=== PATIENT | male | born 1960 | race Caucasian/White ===

== ENCOUNTER 2023-11-14 05:53 | Observation (INO) ==
--- NOTE | 2023-09-25 15:59 | PAT Medication Instructions ---
Medication Instructions Date of Service September 25, 2023 Home Medications ascorbic acid (vitamin C) 1,000 mg tablet (Vitamin C) 1 g PO QAM atenolol 100 mg-chlorthalidone 25 mg tablet 1 tab PO QAM chlorthalidone 25 mg tablet 25 mg PO QAM cholecalciferol (vitamin D3) 25 mcg (1,000 unit) chewable tablet (Vitamin D3) 25 mcg PO QAM gabapentin 300 mg tablet 300 mg PO BID simvastatin 20 mg tablet 20 mg PO HS Acid Reflux Medication 1 tab PO DAILY duloxetine 30 mg capsule,delayed release 30 mg PO QAM Continue as directed Acid Reflux Medication 1 tab PO DAILY--if TUMS cannot be taken day of surgery DO NOT take the morning of surgery ascorbic acid (vitamin C) 1,000 mg tablet (Vitamin C) 1 g PO QAM chlorthalidone 25 mg tablet 25 mg PO QAM cholecalciferol (vitamin D3) 25 mcg (1,000 unit) chewable tablet (Vitamin D3) 25 mcg PO QAM Take morning of surgery With a small sip of water, OTHERWISE NOTHING TO EAT OR DRINK AFTER MIDNIGHT: atenolol 100 mg-chlorthalidone 25 mg tablet 1 tab PO QAM gabapentin 300 mg tablet 300 mg PO BID duloxetine 30 mg capsule,delayed release 30 mg PO QAM Take evening before surgery gabapentin 300 mg tablet 300 mg PO BID simvastatin 20 mg tablet 20 mg PO HS Other Notes If you have any questions please call us at [phone] or [phone] or [phone] or [phone]
--- NOTE | 2023-10-07 09:41 | Anesthesiology Consultation ---
Date of Service October 07, 2023 Assessment & Plan (1) Encounter for pre-operative examination: - Infectious disease screening: Per assessment on 10/07/23: No known recent infectious disease contacts. Patient reports recent Lyme disease diagnosis 09/2023- almost done with treatment course. Fatigue/dizziness related to this improving per patient at PAT visit 10/07/23. - Cardiology visit (05/01/23): "Patient presents for evaluation of aortic valve disease.. Doppler findings suggest mild to moderate stenosis.. It may be a bicuspid valve, but cannot know this for sure on the basis of his echocardiogram. The echo was otherwise normal.. He reports occasional lightheadedness, but this is not likely from the valve.. I will repeat an echocardiogram in one year and see him back after" - Heavy ETOH use: 4 beers/day (evening)- no morning ETOH use per patient - Patient acceptable risk for surgery pending surgeon-ordered PCP preop evaluation (Dr. Lundy/[place], appt date TBD per PCP office). Chart Review Chart Review: Patient seen in Pre Admission Testing Teaching & Discussion Pre-Anesthesia Teaching/Discussion Notes: Instructed NPO after midnight before surgery,except medications with 15 cc of water. Medication instructions provided according to the [facility] guidelines. History Surgery Operation Date: 11/14/23 07:45 Proposed Procedures p C4-C7 Anterior Discectomy and Fusion, Spinal Cord Monitoring - Yung Charlton DO Height/Weight Height: 5 ft 9 in Weight: 105.8 kg Allergies Allergy/AdvReac Type Severity Reaction Status Date / Time No Known Allergies Allergy Intermediate NONE Verified 09/25/23 15:16 Medications Home Medications Medication Instructions Recorded Confirmed Last Taken ascorbic acid (vitamin C) 1,000 mg 1 g PO QAM 06/12/23 09/25/23 06/17/23 05:00 tablet (Vitamin C) atenolol 100 mg-chlorthalidone 25 1 tab PO QAM 06/12/23 09/25/23 06/17/23 05:00 mg tablet chlorthalidone 25 mg tablet 25 mg PO QAM 06/12/23 09/25/23 06/17/23 05:00 cholecalciferol (vitamin D3) 25 25 mcg PO QAM 06/12/23 09/25/23 06/17/23 05:00 mcg (1,000 unit) chewable tablet (Vitamin D3) gabapentin 300 mg tablet 300 mg PO BID 06/12/23 09/25/23 06/17/23 00:00 simvastatin 20 mg tablet 20 mg PO HS 06/12/23 09/25/23 06/17/23 05:00 Acid Reflux Medication 1 tab PO DAILY 09/25/23 09/25/23 Unknown duloxetine 30 mg capsule,delayed 30 mg PO QAM 09/25/23 09/25/23 Unknown release Past Medical History Medical History Aortic stenosis Echo 03/2023: Mild to moderate aortic stenosis (TUCKER 1.2cm2, MG 16mmhg) Cervical pain (neck) + neuropathy Follows with Neuro Dr. Moore/PH Hal Claustrophobia Hx of colonic polyps Hyperlipidemia Hypertension Lyme disease Dx 09/2023, almost done with abx treatment- symptoms improving per PAT visit 10/07/23 Peripheral neuropathy Exercise / Class Metabolic Activity II 4-5 Yardwork/Stairs/Walk up hill Past Surgical History Surgical History History of left knee replacement (~2008) Hx of colonoscopy with polypectomy Hx of knee surgery x3, R/L cartilage repair Hx of repair of left rotator cuff Past Anesthesia History No Hx of Anesthesia Complications and No Family Hx of Anesthesia Complications History of PONV No Hx of PONV and No Hx of Motion Sickness Social History Smoking Status: Never smoker Do You Dip or Chew Tobacco: Yes (Daily- advised none DOS) Hx Alcohol Use: Yes Alcohol type: beer alcohol intake frequency: 3 or more drinks per day (4 beers/day (evening)- no morning ETOH use) Hx Substance Use: No substance use type: does not use Review of Systems Patient denies chest pain, shortness of breath, dyspnea on exertion, fever, chills, cough, wheezing, palpitations. Physical Exam Vital Signs BP 102/70 P 71 TEMP 98.0 SP02 95% RESP 16 Physical Mildly decreased cervical extension range of motion. Full TMJ range of motion. TMD 3 finger breaths Mallampati Score I Dentition: intact, upper front caps Lungs: clear throughout to auscultation Cardiac: regular rate and rhythm, no murmurs noted Spine: normal Carotid arteries: negative bruit Extremities: no LE edema Lab Results Anesthesia Preop Results Results Anesthesia Widget: WBC 8.60 K/ul (4.8-10.8) 10/07/23 Hgb 16.4 g/dl (14.0-18.0) 10/07/23 Hct 46.6 % (42.0-52.0) 10/07/23 Plt 384 K/uL (130-400) 10/07/23 Na 139 mmol/L (136-145) 10/07/23 K 4.1 mmol/L (3.5-5.1) 10/07/23 Cl 102 mmol/L (98-107) 10/07/23 CO2 30 mmol/L (21-32) 10/07/23 BUN 25 mg/dl (6-23) H 10/07/23 Creat 0.97 mg/dl (0.6-1.4) 10/07/23 Glucose Level 85 mg/dl (70-99(Fasting)) 10/07/23 PT 10.9 Seconds (9.0-12.0) 10/07/23 PTT 27 Seconds (21-31) 10/07/23 INR 1.0 (0.9-1.1) 10/07/23 Urine Color Yellow 10/07/23 Urine Appearance Clear (Clear) 10/07/23 Urine pH 5.5 (4.5-7.5) 10/07/23 Urine Specific [place] 1.026 (1.000-1.030) 10/07/23 Urine Protein Trace (Negative) H 10/07/23 Urine Glucose (UA) Negative (Negative) 10/07/23 Urine Ketones Trace (Negative) H 10/07/23 Urine Blood Negative (Negative) 10/07/23 Urine Nitrite Negative (Negative) 10/07/23 Urine Bilirubin Negative (Negative) 10/07/23 Urine Urobilinogen Negative (Negative) 10/07/23 Urine Leukocyte Esterase 1+ (Negative) H 10/07/23 Urine WBC (Auto) 6-10 /hpf (0-5) H 10/07/23 Urine RBC (Auto) 3-5 /hpf (0-2) H 10/07/23 Urine Hyaline Casts (Auto) 11-20 /lpf (0-2) H 10/07/23 Urine Epithelial Cells (Auto) 0-2 /hpf (0-2) 10/07/23 Urine Bacteria (Auto) None Seen (None Seen) 10/07/23 Blood Type O Negative 10/07/23 Antibody Screen NEGATIVE 10/07/23 Testing Laboratory Results 09/24/23 HGBA1C 5.9% TSH 1.180 Electrocardiogram Date: 05/01/23 SB at 57bpm. First degree AVB. RBBB. Chest X-Ray Date: 10/07/23 FINDINGS: PA and lateral chest radiographs are compared to study dated 09/27/2008. The heart is enlarged noting atherosclerotic calcification of the thoracic aorta. The pulmonary vasculature is not congested. There is mild bibasilar scarring/atelectasis. The lungs and pleural spaces are otherwise clear. There is no pneumothorax. The skeletal structures are osteopenic. There are chronic/healed left-sided rib fractures. IMPRESSION: Cardiomegaly with no active disease in the chest. Echocardiogram Date: 03/06/23 LVEF 60-65%. Wall motion is normal. Mild to moderate aortic stenosis (TUCKER 1.2cm2, MG 16mmhg).
[2023-11-14] MEDS: LR 60ML/HR IV SCH (06:32)
[2023-11-14] MEDS: LR 15ML/HR IV SCH (06:32)
[2023-11-14] MEDS: GABAPENTIN 600 MG DOSE PO SCH (06:35)
[2023-11-14] MEDS: CeleBREX 200 MG CAP PO SCH (06:35)
[2023-11-14] MEDS ORDERED: MIDAZOLAM HCL 1 MG/ML 2ML VIAL ONE (06:52)
[2023-11-14] MEDS ORDERED: fentaNYL citrate PF 100 MCG/2 ML VIAL ONE (06:53)
[2023-11-14] MEDS ORDERED: LIDOCAINE 2% 2 ML VIAL/AMP(20MG/ML) INFIL ONE (07:06)
[2023-11-14] MEDS ORDERED: DEXAMETHASONE SOD INJ 4 MG/ML VIAL ONE (07:06)
[2023-11-14] MEDS ORDERED: ROCURONIUM BROMIDE 10 MG/ML 5 ML VIAL IV ONE ×3 (07:06→09:02)
[2023-11-14] MEDS ORDERED: PROPOFOL IV EMULSION 10 MG/ML 20 ML VIAL IV ONE (07:06)
[2023-11-14] MEDS ORDERED: ONDANSETRON INJ 2 MG/ML 2 ML VIAL ONE (07:06)
[2023-11-14] MEDS ORDERED: ATROPINE SULFATE 0.1 MG/ML 10ML SYR IV PRN (07:28)
[2023-11-14] MEDS ORDERED: HYDROmorphone INJ 2 MG/ML SYR/VIAL IV PRN (07:28)
[2023-11-14] MEDS ORDERED: fentaNYL citrate PF 100 MCG/2 ML VIAL IV PRN (07:28)
[2023-11-14] MEDS ORDERED: ePHEDrine sulfate 50 MG/ML AMP IV PRN (07:28)
--- NOTE | 2023-11-14 07:42 | History & Physical Bridge Note ---
Date of Service November 14, 2023 History & Physical Bridge Note I have examined the patient, reviewed the History & Physical and in the interval since the performance of the History & Physical I have noted the following changes of clinical significance: no changes noted
--- NOTE | 2023-11-14 07:43 | History & Physical Report ---
Date of Service November 14, 2023 Assessment & Plan (1) Cervical stenosis of spinal canal: Plan: C4-C7 anterior cervical discectomy and fusion History of Present Illness Chief Complaint: Neck and arm pain Primary Care Provider: Yaniv Lundy This is a 63-year-old male presents with chronic persistent neck and arm pain after failing course of nonoperative care is here for surgical invention. Allergies Allergy/AdvReac Type Severity Reaction Status Date / Time No Known Allergies Allergy Intermediate NONE Verified 11/14/23 06:11 Home Medications Medication Instructions Recorded Confirmed Type ascorbic acid (vitamin C) 1,000 mg 1 g PO QAM 06/12/23 11/14/23 History tablet (Vitamin C) atenolol 100 mg-chlorthalidone 25 1 tab PO QAM 06/12/23 11/14/23 History mg tablet chlorthalidone 25 mg tablet 25 mg PO QAM 06/12/23 11/14/23 History cholecalciferol (vitamin D3) 25 25 mcg PO QAM 06/12/23 11/14/23 History mcg (1,000 unit) chewable tablet (Vitamin D3) gabapentin 300 mg tablet 300 mg PO BID 06/12/23 11/14/23 History simvastatin 20 mg tablet 20 mg PO HS 06/12/23 11/14/23 History duloxetine 30 mg capsule,delayed 30 mg PO QAM 09/25/23 11/14/23 History release Past Med/Surg History Problem List (Updated 11/14/23 @ 07:43 by Yung Charlton DO) Cervical stenosis of spinal canal Medical History Aortic stenosis Echo 03/2023: Mild to moderate aortic stenosis (TUCKER 1.2cm2, MG 16mmhg) Cervical pain (neck) + neuropathy Follows with Neuro Dr. Moore/PH Hal Claustrophobia Hx of colonic polyps Hyperlipidemia Hypertension Lyme disease Dx 09/2023, almost done with abx treatment- symptoms improving per PAT visit 10/07/23 Peripheral neuropathy Surgical History History of left knee replacement (~2008) Hx of colonoscopy with polypectomy Hx of knee surgery x3, R/L cartilage repair Hx of repair of left rotator cuff Social History Smoking Status: Never smoker Tobacco Type: Smokeless Tobacco (Dip or Chew) Second Hand Exposure: Yes (hx in the workplace); Do You Dip or Chew Tobacco: Yes (Daily- advised none DOS); Tobacco Cessation Education Requested by Patient: No Hx Alcohol Use: Yes Alcohol type: beer Hx Substance Use: No Preferred Language: Lithuanian Communication Ability: Effective Clinical Outcomes Manager Required: No Beliefs That Will Affect Care: None Current Living Situation: Spouse Other Information That Helps Us Care for You: No Feels Safe at Home: Yes Safety Concerns: Feels Safe At This Time Assistive Devices: Glasses Physical Exam Physical Exam: Patient is alert and oriented Heart regular rhythm Lungs clear Results & Data Results & Data Vital Signs (Past 12 Hours) Vital Signs Temp Pulse Resp BP Pulse Ox O2 Del Method 11/14/23 06:14 36.9 C 55 L 18 136/80 96 Room Air
[2023-11-14] MEDS: ceFAZolin 2000MG 2,000 MG/15 ML SYR IV SCH ×2 (07:49→16:41)
[2023-11-14] MEDS ORDERED: GLYCOPYRROLATE 0.2 MG/ML VIAL ONE (08:15)
[2023-11-14] MEDS ORDERED: diphenhydrAMINE 50 MG/ML VIAL ONE (08:15)
[2023-11-14] MEDS ORDERED: KETAMINE HCL 10MG/ML SYR ONE (08:33)
[2023-11-14] MEDS ORDERED: ePHEDrine sulfate 50 MG/ML AMP ONE (09:06)
[2023-11-14] MEDS: FLOSEAL HEMOSTATIC MATRIX 10ML TOP ONE (09:42)
[2023-11-14] MEDS: ceFAZolin 330 MG/ML 1 GM VIAL ONE (09:42)
[2023-11-14] MEDS ORDERED: SUGAMMADEX SODIUM 200 MG/2 ML VIAL IV ONE (09:48)
--- NOTE | 2023-11-14 09:57 | Operative Report ---
Post Operative Report Pre & Post Diagnosis Operation Date: 11/14/23 07:40 Pre-Op Diagnosis: Cervical spinal stenosis with radiculopathy Post-Op Diagnosis: Same I identified the patient and participated in the time-out.: Yes Procedure Operation Date: 11/14/23 07:40 Actual Procedures #1 anterior cervical discectomy with bilateral foraminotomies C4-C5, C5-C6 and C6-C7. #2 anterior cervical arthrodesis C4-C5, C5-C6 and C6-C7. #3 placement of Spira 9 mm cage filled with os designed at C4-C5, 8 mm at C5-C6 and 9 mm at C6-7. #4 placement of anterior cervical plate and screws from C4-C7. Surgeon Yung Charlton, DO Loader Technician Anjum Shaw Estimated Blood Loss 10 Findings See Below The patient is 5 foot 9 weighing over 110 kg a BMI of 36. Patient's body habitus did contribute to significant technical difficulty with positioning exposure and the procedure itself adding at least 50% increased operative time. Specimens None Indications This is a 63-year-old male presents publish diagnosis after failing course of nonoperative care is here for surgical invention. Description of Procedure Patient was met with identified informed consent obtained. Patient was then taken to the operative suite underwent intubation placed in supine position on the Alexander table with a head Heard head charrer. All bony promises well- padded eyes inspected to ensure no external pressure placed upon them. This point the anterior cervical spine was prepped and draped in normal sterile fashion. The assistance of fluoroscopy identified the see 5 vertebral body and a transverse incision was placed along the right anterior cervical spine overlying this region. Blunt dissection with the assistance of bipolar cautery was performed down to and exposing the anterior cervical spine from C4-C7. Self-retaining retractors placed. I then performed a complete discectomy of C4- C5 out to the uncovertebral joints bilaterally. Casar distracting pins utilized to assist in visualization. Removed all posterior annular fibers longitudinal ligament bilateral foraminotomies performed. Endplates burred to subcortical bleeding bone and a 9 mm spiral cage filled with os design tapped in position. Then proceeded to see 5 C6. Again complete discectomy performed up to the uncovertebral joints bilaterally. Casar distracting pins again utilized. Removed all posterior annular fibers longitudinal ligament bilateral foraminotomies performed and an 8 mm spiral cage filled with os design tapped position. Lastly approached C6-C7. Again complete discectomy performed out to the uncovertebral was bilaterally. Casar distracting pins again utilized. Removed all posterior annular fibers longitudinal ligament bilateral foraminotomies performed. Endplates burred to subcortical bleeding bone and 9 mm Spira cage filled with os design bone graft tapped in position. Distracting apparatus was removed. All anterior osteophytes burred to smooth cortical surface and a plate and screws applied with the assistance of fluoroscopy. Incision was then neisha irrigated explored to ensure no damage to surrounding structures or remaining bleeding. 10 round GENARO drain inserted. The incision was then closed with 2 Vicryl in the fascia and a 4 Monocryl for final skin closure. Steri-Strips sterile dressing placed. Patient awakened and taken recovery stable condition. Please note spinal cord monitoring was utilized at the procedure no changes noted. Sapna Shaw was present out the entire procedure and all the patient positioning complex portions of the surgery and final skin closure. Im ordering 10 grams of Triple [place] Collagen Powder (Leho [id number]) to treat an incision wound that was caused by a spine procedure. The incision is approximately 2 cm(W) x 4 cm(L) into the joint (D) in size and is a full thickness wound. Triple [place] collagen comes in 1 gram packets so 10 packets were ordered. Given the size of the wound, with light to moderate exudate I chose to order a 10 day supply. The patient will be provided instructions for proper application of the collagen wound kit. The patient will be asked to apply the collagen powder daily and then cover it with sterile dressings dispensed. Collagen was selected as I expect the collagen to attract monocytes and fibroblasts, act as a sacrificial substrate for MMPs, and ultimately proved a matrix for tissue and vessel growth. The collagen will act as a primary dressing in this scenario. It is medically necessary for proper healing of these wounds to improve bioavailability and contact with each wound surface, this is also to help prevent infection of wounds and promote healing ultimately leading to a better healing outcome and limit the risk of infection. I attest to the content of the Intraoperative Record and any orders documented therein. Any exceptions are noted below.
[2023-11-14] MEDS ORDERED: HYDROmorphone INJ 2 MG/ML SYR/VIAL ONE (10:11)
[2023-11-14] MEDS: ONDANSETRON INJ 2 MG/ML 2 ML VIAL IV PRN (10:35)
--- NOTE | 2023-11-14 11:00 | Anesthesiology Progress Note ---
Date of Service November 14, 2023 Anesthesia Post Procedure Vital Signs Vital Signs: Temp Pulse Pulse Resp BP Pulse Ox O2 Del Method 11/14/23 10:55 37 C 68 12 117/75 96 Nasal Cannula 11/14/23 10:45 70 12 128/79 96 Oxymask 11/14/23 10:35 72 12 138/82 96 Oxymask 11/14/23 10:25 75 13 143/90 H 95 Oxymask 11/14/23 10:16 36.5 C 76 14 142/76 H 94 Oxymask 11/14/23 06:14 36.9 C 55 L 18 136/80 96 Room Air O2 Flow Rate 11/14/23 10:55 4 11/14/23 10:45 4 11/14/23 10:35 12 11/14/23 10:25 12 11/14/23 10:16 12 11/14/23 06:14 Pain Intensity Neck: Pain Intensity: 3 Transfer of Care Handoff Completed per policy Notes Mental Status: alert / awake / arousable and participated in evaluation Patient Amnestic to Procedure: Yes Nausea / Vomiting: adequately controlled Pain: adequately controlled Airway Patency, RR, SpO2: stable & adequate BP & HR: stable & adequate Hydration State: stable & adequate Anesthetic Complications: no major complications apparent and Pt Satisfied with anesthetic care Notes: moving all extermities
--- NOTE | 2023-11-14 11:14 | Fluoroscopy Report ---
FL cervical 2-3V CLINICAL HISTORY: ACDF C4-C7 TECHNIQUE: 3 views were obtained with the C-arm in the OR with the above procedure. Total fluoroscopy time was 18.1 seconds. Radiation dose was 6.1 mGy. Comparison: None available at the time of this dictation. FINDINGS/IMPRESSION: Intraoperative images were obtained of ACT had spanning C4-C7. Please correlate with intraoperative fluoroscopy and operative report. ACT 112: Negative or not required by law. Electronically signed by: Cody Garcia M.D. 11/14/2023 11:13 AM
[2023-11-14] MEDS ORDERED: MAGNESIUM HYDROXIDE SUSP 30 ML UDC PO PRN (11:44)
[2023-11-14] MEDS ORDERED: NALOXONE HCL 0.4 MG/1 ML VIAL/CARP IV PRN (11:44)
[2023-11-14] MEDS ORDERED: oxyCODONE HCL IR 5 MG TAB (IMMEDIATE RELEASE) PO PRN (11:44)
[2023-11-14] MEDS ORDERED: FAMOTIDINE 20 MG TAB PO PRN (11:44)
[2023-11-14] MEDS ORDERED: ALUMINUM/MAGNESIUM SUSP 30 ML UDC PO PRN (11:44)
[2023-11-14] MEDS ORDERED: METOCLOPRAMIDE HCL INJ 5 MG/ML 2 ML VIAL IV PRN (11:44)
[2023-11-14] MEDS ORDERED: ONDANSETRON 4 MG OD TAB PO PRN (11:44)
[2023-11-14] MEDS ORDERED: diphenhydrAMINE Capsule 25 MG CAP PO PRN (11:44)
[2023-11-14] MEDS ORDERED: traMADol HCL 50 MG TABLET PO PRN (11:44)
[2023-11-14] MEDS ORDERED: RACEPINEPHRINE 2.25% NEBU SOLN 0.5 ML VIAL INH PRN (11:44)
[2023-11-14] MEDS ORDERED: dexAMETHasone 8 MG in SYRINGE 0 ML IV PRN (11:44)
[2023-11-14] MEDS ORDERED: DO NOT ADMINISTER PNEUMOCOCCAL VACCINE PRN (11:44)
[2023-11-14] MEDS ORDERED: hydrOXYzine HCl 25 MG TAB PO PRN (11:44)
[2023-11-14] MEDS ORDERED: LORazepam 2 MG/1 ML VIAL IV PRN (11:44)
[2023-11-14] MEDS ORDERED: HYDROmorphone INJ 1 MG/ML SYRINGE IV PRN (11:44)
[2023-11-14] MEDS ORDERED: ACETAMINOPHEN 1,000 MG/100 ML VIAL IV PRN (11:44)
[2023-11-14] MEDS ORDERED: DO NOT ADMINISTER FLU VACCINE PRN (11:44)
[2023-11-14] MEDS ORDERED: PROMETHAZINE 12.5 MG/50.5 ML BAG IV PRN (11:44)
[2023-11-14] MEDS ORDERED: SOD PHOSPHATE/SOD BIPHOSPHATE ENEMA 132 ML BTL PR PRN (11:44)
[2023-11-14] MEDS ORDERED: ONDANSETRON INJ 2 MG/ML 2 ML VIAL IV PRN (11:44)
[2023-11-14] MEDS ORDERED: HYDROmorphone INJ 0.5 MG/0.5 ML SYR IV PRN (11:44)
[2023-11-14] MEDS ORDERED: ACETAMINOPHEN 500 MG TAB PO PRN (11:44)
[2023-11-14] MEDS ORDERED: LORazepam 0.5 MG TAB PO PRN (11:44)
[2023-11-14] MEDS ORDERED: bisacodyL 10 MG SUPP PR PRN (11:44)
[2023-11-14] MEDS: LACTATED RINGER'S 1,000 ML IV SCH (12:17)
--- NOTE | 2023-11-14 12:19 | Hospitalist Consultation ---
<Statement entered by Ruben Ch MD - 11/14/23 15:59> Attending Addendum: Case reviewed with the advanced practitioner. I have personally performed a history and physical examination on the patient. I have reviewed the advanced practitioner's documentation on the date of service referenced in note, and I agree with, and take responsibility for the plan of care. Medical management for orthopedics Stable medical issues. Date of Consultation November 14, 2023 Assessment & Plan (1) Cervical stenosis of spinal canal: (2) S/P spinal surgery: Plan Humphrey Ybarra is a 63y/o M with PMHx of aortic stenosis, Lyme disease, peripheral neuropathy, HLD, HTN and other problems listed below [facility] after undergoing C4-C7 ACDF with Dr. Charlton on 11/14/23. Cervical Spine Stenosis S/P Surgery: POD#0 s/p C4-C7 ACDF performed by Dr. Charlton. EBL: 10mL & Pre-Op Hgb: 16.4 [10/07/23] Currently on 2L oxygen via NC, will wean down as tolerated. Per ortho for pain control, wound care, anticoagulation and activities. Continue incentive spirometry, PT/OT when appropriate. Follow AM labs. Monitor H/H for acute blood loss anemia and transfuse blood products PRN. Alcohol Use: Patient reports he usually drinks 5-6 beers/day. Had 1 beer yesterday. Alcohol w/d at-risk protocol ordered. Will start po folate and thiamine supplementation. Peripheral Neuropathy: Continue home duloxetine, gabapentin. Hypertension: BP has remained stable post-operatively. Can continue home meds for now. Monitor BP routinely. Aortic Stenosis: Most recent echo performed 03/06/23 --> LVEF=60 to 65%, mild to moderate aortic stenosis. Other Chronic Medical Conditions: HLD --> Can continue home simvastatin. Does use chewing tobacco, denies need for nicotine pouch. DVT Prophylaxis: SCDs as per primary surgical service. Code Status: FULL CODE PCP: Yaniv Lundy DO Disposition: Currently under observation in med/surg - discharge planning as per primary care team. Thank you for this consultation. We will follow the patient with you during their hospital stay. You can reach a member of the [facility] 24/7 via [employer]. Patient seen in collaboration with Dr. Ch. Please see addendum. I spent a total of 50 minutes coordinating, documenting, and providing care for this patient excluding time spent in the performance of separately billed services. This included personally reviewing all current laboratories and imaging studies, medical reconciliation, outpatient chart review and discussion with specialists. This chart was completed in part utilizing Speech Voice Recognition Software. Grammatical errors, random word insertions, pronoun errors, and incomplete sentences are an occasional consequence of this system due to software limitations, ambient noise, and hardware issues. Any formal questions or concerns about the content, text, or information contained within the body of this dictation should be directly addressed to the provider for clarification. History of Present Illness Reason for Consultation: Post-Operative Medical Management Requesting Physician: Yung Charlton DO Attending Physician: Yung Charlton DO History of Present Illness Humphrey Ybarra is a 63y/o M with PMHx of aortic stenosis, Lyme disease, peripheral neuropathy, HLD, HTN and other problems listed below who [facility] medical management after undergoing C4-C7 ACDF with Dr. Charlton on 11/14/23. History obtained from patient and associated chart review. Patient feeling well post-operatively. Pain well- controlled. Was eating some sherbet and drinking soup broth when I entered the room without issue. Denies any chest pain or SOB. Has urinal available at bedside. Does drink approximately 5-6 beers a day. Had 1 beer last night prior to fasting for surgery today. Also uses chewing tobacco daily. No recreational drug use. Allergies Allergy/AdvReac Type Severity Reaction Status Date / Time No Known Allergies Allergy Intermediate NONE Verified 11/14/23 06:11 Home Medications Medication Instructions Recorded Confirmed Type ascorbic acid (vitamin C) 1,000 mg 1 g PO QAM 06/12/23 11/14/23 History tablet (Vitamin C) atenolol 100 mg-chlorthalidone 25 1 tab PO QAM 06/12/23 11/14/23 History mg tablet chlorthalidone 25 mg tablet 25 mg PO QAM 06/12/23 11/14/23 History cholecalciferol (vitamin D3) 25 25 mcg PO QAM 06/12/23 11/14/23 History mcg (1,000 unit) chewable tablet (Vitamin D3) gabapentin 300 mg tablet 300 mg PO BID 06/12/23 11/14/23 History simvastatin 20 mg tablet 20 mg PO HS 06/12/23 11/14/23 History duloxetine 30 mg capsule,delayed 30 mg PO QAM 09/25/23 11/14/23 History release oxycodone 5 mg tablet 5 mg PO Q6H PRN pain #30 tabs 11/14/23 Rx tramadol 50 mg tablet 50 mg PO Q6H PRN pain, moderate 11/14/23 Rx #30 tabs Patient History Medical History Lyme disease Dx 09/2023, almost done with abx treatment- symptoms improving per PAT visit 10/07/23 Aortic stenosis Echo 03/2023: Mild to moderate aortic stenosis (TUCKER 1.2cm2, MG 16mmhg) Peripheral neuropathy Claustrophobia Cervical pain (neck) + neuropathy Follows with Neuro Dr. Moore/CHRISTIAN Hong Hx of colonic polyps Hyperlipidemia Hypertension Surgical History Hx of colonoscopy with polypectomy Hx of knee surgery x3, R/L cartilage repair History of left knee replacement (~2008) Hx of repair of left rotator cuff Social History Smoking Status: Never smoker Tobacco Type: Smokeless Tobacco (Dip or Chew) Second Hand Exposure: Yes (hx in the workplace); Do You Dip or Chew Tobacco: Yes (Daily- advised none DOS); Tobacco Cessation Education Requested by Patient: No Hx Alcohol Use: Yes Alcohol type: beer Hx Substance Use: No Preferred Language: [place] Communication Ability: Effective Emergency Generator Mechanic Required: No Beliefs That Will Affect Care: None Current Living Situation: Spouse Other Information That Helps Us Care for You: No Feels Safe at Home: Yes Safety Concerns: Feels Safe At This Time Assistive Devices: Glasses Review of Systems Review of Systems: At least ten systems reviewed and negative, except as noted in the HPI. Physical Exam Physical Exam: General: WD/WN, vitals as above, NAD, sitting up in bed, pleasant, conversing appropriately. A+Ox3, euthymic affect. HEENT: Normocephalic, atraumatic. PERRL, conjunctivae normal, anicteric sclerae. External ear and nose normal, oropharynx normal. Neck: Cervical collar in place, surgical bandaging dry and intact, trachea midline. Respiratory: Normal respiratory effort, lungs clear to auscultation, no wheeze, rales, rhonchi. No accessory muscle use. Cardiovascular: Regular rate, rhythm, no murmur, normal peripheral pulses, no BLE edema. Vessels: No JVD. Abdomen/GI: Normal bowel sounds, soft, nontender, no hepatosplenomegaly. Extremities/Musculoskeletal: No cyanosis or clubbing, moves all extremities. Neurologic: EOMI, no focal deficits, CN's II-XI not formally tested but appear grossly intact bilaterally. Skin: No rashes, normal color, warm/dry. GENARO drain x 1 intact and draining se rosanguineous fluid. Results & Data Results & Data Vital Signs (Past 12 Hours) Vital Signs Temp Pulse Pulse Resp BP Pulse Ox Pulse Ox 11/14/23 12:10 36.7 C 64 18 120/72 96 11/14/23 11:44 96 11/14/23 11:40 11/14/23 11:40 36.6 C 63 20 113/75 96 11/14/23 11:25 365 H 12 114/68 94 11/14/23 11:15 68 13 110/70 93 11/14/23 11:05 72 14 119/77 94 11/14/23 10:55 37 C 68 12 117/75 96 11/14/23 10:45 70 12 128/79 96 11/14/23 10:35 72 12 138/82 96 11/14/23 10:25 75 13 143/90 H 95 11/14/23 10:16 36.5 C 76 14 142/76 H 94 11/14/23 06:14 36.9 C 55 L 18 136/80 96 O2 Del Method O2 Del Method O2 Flow Rate O2 Flow Rate 11/14/23 12:10 Nasal Cannula 3 11/14/23 11:44 Nasal Cannula 3 11/14/23 11:40 Nasal Cannula 3 11/14/23 11:40 Nasal Cannula 3 11/14/23 11:25 Nasal Cannula 3 11/14/23 11:15 Nasal Cannula 3 11/14/23 11:05 Nasal Cannula 3 11/14/23 10:55 Nasal Cannula 4 11/14/23 10:45 Oxymask 4 11/14/23 10:35 Oxymask 12 11/14/23 10:25 Oxymask 12 11/14/23 10:16 Oxymask 12 11/14/23 06:14 Room Air Diagnostic Findings Cervical Spine X-Ray 11/14/23 07:40 FL cervical 2-3V CLINICAL HISTORY: ACDF C4-C7 TECHNIQUE: 3 views were obtained with the C-arm in the OR with the above procedure. Total fluoroscopy time was 18.1 seconds. Radiation dose was 6.1 mGy. Comparison: None available at the time of this dictation. FINDINGS/IMPRESSION: Intraoperative images were obtained of ACT had spanning C4- C7. Please correlate with intraoperative fluoroscopy and operative report. ACT 112: Negative or not required by law. Electronically signed by: Cody Garcia M.D. 11/14/2023 11:13 AM Medications Administered Celecoxib (Celebrex 200 Mg Cap) 200 mg PO PREOP ZOE Stop: 11/14/23 18:00 Last Admin: 11/14/23 06:35 Dose: 200 mg Documented By: JEFFRY Gabapentin (Gabapentin 600 Mg Dose) 600 mg PO PREOP ZOE Stop: 11/14/23 18:00 Last Admin: 11/14/23 06:35 Dose: 300 mg Documented By: JEFFRY Lactated Ringer's (Lr) 1,000 mls @ 15 mls/hr IV .Q24H ZOE Stop: 11/15/23 05:59 Last Infusion: 11/14/23 07:47 Dose: Infused Documented By: Admin: 11/14/23 06:32 Dose: 15 mls/hr Documented By: JEFFRY Lactated Ringer's (Lr) 1,000 mls @ 60 mls/hr IV .[id number] ZOE Stop: 11/14/23 22:39 Last Admin: 11/14/23 06:32 Dose: Not Given Documented By: JEFFRY Cefazolin Sodium (Ancef 2000mg) 2,000 mg in 15 mls @ 3.75 mls/min IV PREOP ZOE; Protocol Stop: 11/14/23 18:00 Last Admin: 11/14/23 07:49 Dose: 3.75 mls/min Documented By: [id number] Lactated Ringer's (Lr) 1,000 mls @ 150 mls/hr IV .Q6H40M [facility] Stop: 12/14/23 11:43 Last Admin: 11/14/23 12:17 Dose: 150 mls/hr Documented By: CHAO Ondansetron HCl (Ondansetron Inj 2 Mg/Ml 2 Ml Vial) 4 mg IV ONCE PRN PRN Reason: PACU Use Only-Nausea/Vomiting Stop: 11/14/23 15:30 Last Admin: 11/14/23 10:35 Dose: 4 mg Documented By: TROY Discontinued Medications Cefazolin Sodium (Cefazolin 330 Mg/Ml 1 Gm Vial) Confirm Administered Dose 990 mg .ROUTE .STK-MED ONE Stop: 11/14/23 06:50 Last Admin: 11/14/23 09:42 Dose: 990 mg Documented By: GALILEO Miscellaneous ( Floseal Hemostatic Matrix 10ml) 18 ml TOP ONCE ONE Stop: 11/14/23 09:43 Last Admin: 11/14/23 09:42 Dose: 18 ml Documented By: GALILEO
[2023-11-14] MEDS ORDERED: LORazepam 1 MG TAB PO PRN (12:53)
[2023-11-14] MEDS: GABAPENTIN 300 MG CAP PO SCH (21:11)
[2023-11-14] MEDS: SIMVASTATIN 20 MG TAB PO SCH (21:11)
[2023-11-14] MEDS: DOCUSATE SODIUM/SENNA 50/8.6MG TAB PO SCH (21:11)
[2023-11-15] MEDS: POLYETHYLENE (MIRALAX) 17 GM PACK PO SCH (05:22)
[2023-11-15 06:15] LABS: Hematocrit (blood only) 36.3 % (42.0-52.0); Hemoglobin 12.3 g/dl (14.0-18.0); Mean Corpuscular Hemoglobin 30.2 pg (25.0-34.0); Mean Corpuscular Hgb Conc 33.9 g/dL (32.0-36.0); Mean Corpuscular Volume 89.2 fL (80.0-100.0); Mean Platelet Volume 9.7 fL (9.4-12.4); Platelet Count 258 K/uL (130-400); RDW Coefficient of Variation 13.4 % (11.5-14.5); RDW Standard Deviation 43.8 fL (36.4-46.3); Red Blood Count 4.07 M/uL (4.70-6.10); White Blood Count 15.73 K/ul (4.8-10.8)
[2023-11-15 06:29] LABS: BUN Creatinine Ratio 19.2 (10-20); Calcium 9.4 mg/dl (8.6-10.3); Creatinine Clr Calc Pharmacy 125.3 ml/min; Est GFR (African American) 113.6 ml/min; Magnesium 1.8 mg/dl (1.7-2.4); Phosphorus 3.6 mg/dl (2.5-4.9); Potassium 3.9 mmol/L (3.5-5.1)
--- NOTE | 2023-11-15 08:01 | Discharge Summary ---
Date of Service November 15, 2023 Admission HPI Per Admitting Provider This is a 63-year-old male presents with chronic persistent neck and arm pain after failing course of nonoperative care is here for surgical invention. Discharge Data Consultations 11/14/23 11:44 Consult Hospitalist Routine Procedures Performed Operation Date: 11/14/23 07:40 Actual Procedures p C4-C7 Anterior Discectomy and Fusion, Spinal Cord Monitoring(Not Applicable) - Yung Charlton, Hospital Course (1) Cervical stenosis of spinal canal: Patient is a pleasant 63-year-old male with history physical examination radiographic images consistent with the above-mentioned diagnosis. For this reason he was brought to the operating room on 11/14/2023 and undergone an anterior cervical discectomy and fusion from C4-C7. This performed by Dr. Charlton under general anesthesia. He left the operating room with a GENARO drain in place and was transferred to PACU in stable condition. Is then brought to the orthopedic floor. Overnight his pain was well-controlled he is able to swallow and eat solid foods. At this morning he was very comfortable having no pain or numbness going down the arms. He is able to stand and walk to get to and from the bathroom. He was deemed safe for home discharge. His discharge instructions were with no more than 5 to 7 pounds. He is to keep his collar in place when he is up and walking in a car but can remove it if he is sitting quietly in a chair for meals and for showers. He was to change dressing once daily till there is no drainage and once there is no drainage he may shower. He was to see us in the office approximately 2 weeks from his surgical date or sooner if he developed any increasing pain drainage from the incision fevers or chills.
[2023-11-15 08:08] VITALS: BP 126/72; TEMP 97.9
[2023-11-15] MEDS: ATENOLOL 50 MG TABLET PO SCH (09:00)
[2023-11-15] MEDS: CHOLECALCIFEROL 25 MCG (1000 UNITS) TAB PO SCH (09:00)
[2023-11-15] MEDS: FOLIC ACID 1 MG TAB PO SCH (09:00)
[2023-11-15] MEDS: ASCORBIC ACID 500 MG TAB PO SCH (09:01)
[2023-11-15] MEDS: CHLORTHALIDONE 25 MG TAB PO SCH (09:01)
[2023-11-15] MEDS: DULoxetine HCL 30 MG CAP PO SCH (09:01)
[2023-11-15] MEDS: THIAMINE HCL 100 MG TAB PO SCH (09:02)
[2023-11-15] MEDS: dexAMETHasone 6 MG in SYRINGE 0 ML IV SCH (09:03)
[2023-11-15 10:05] VITALS: PULSE 68; RESP 18; O2SAT 97
== END 2023-11-15 11:27 | disposition home or self-care (01) ==
LOC: ASU 05:53 → 3E 05:53